=== PATIENT | male | born 1985 | race Caucasian/White ===

== ENCOUNTER 2019-12-05 14:02 | Emergency (ER) | payer SELFPAY ==
[~2019-12-05] VITALS: Ht 165.1 cm; Wt 68.0 kg
--- NOTE | 2019-12-05 14:02 | NUR ---
Patient [facility] for pre-booking medical screening exam, transferre to chair C. RN evaluating patient at bedside.
[2019-12-05 14:07] VITALS: BP 160/112
--- NOTE | 2019-12-05 14:15 | NUR ---
PT BIB [employer] FOR MEDICAL CLEARANCE. PER [employer] PT WAS ALREADY AT BOOKED BUT BP WAS TOO HIGH. PT HAS NO C/O PAIN, BLURRED VISION, HEADACHE. SITTING IN [facility]. [employer] [place] CHAIRSIDE
[2019-12-05 14:35] VITALS: BP 160/112
--- NOTE | 2019-12-05 14:36 | NUR ---
PATIENT [facility] DEPT. PATIENT EXAMINED BY MICHELE LOMELI. PATIENT MEDICALLY CLEARED AND RELEASED IN CUSTODY IN STABLE CONDITION. ORIGINAL PRE-BOOK FORM GIVEN TO [employer]ICER [place].
== END 2019-12-05 14:36 ==
LOC: MED 14:02
DX: R03.0 Elevated blood-pressure reading, without diagnosis of hypertension (principal); F17.210 Nicotine dependence, cigarettes, uncomplicated; Z71.6 Tobacco abuse counseling; Z02.89 Encounter for other administrative examinations
CPT/HCPCS: 99283